=== PATIENT | female | born 1955 | race Caucasian/White ===

== ENCOUNTER 2020-02-05 12:06 | Outpatient (CLI) | payer OTHER ==
--- NOTE | 2020-02-05 14:04 | RAD ---
EXAM: 3 views of the lumbosacral spine HISTORY: Low back pain for 16 years COMPARISON: None FINDINGS: 3 views of the lumbosacral spine shows normal height and alignment of the vertebral bodies and intervertebral discs without fracture or subluxation. 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 This is more prominent inferiorly. The sacroiliac joints are unremarkable. IMPRESSION: Moderate degenerative changes of the lumbar spine without acute osseous abnormality.
== END 2020-02-05 12:07 | disposition home or self-care (01) ==
LOC: SCSRAD 12:06
PROVIDERS: ATTEND Family Medicine Sports Medicine
DX: M54.41 Lumbago with sciatica, right side (principal); M47.816 Spondylosis without myelopathy or radiculopathy, lumbar region
CPT/HCPCS: 72100